=== PATIENT | female | born 1980 | race Two or more races ===

== ENCOUNTER 2016-11-21 10:16 | Outpatient (CLI) | payer MEDICAID ==
--- NOTE | 2016-11-22 22:50 | L&D Discharge Summary ---
OB Discharge Summary Datetime Report Generated by CPN: 11/22/2016 22:45 DISCHARGE DIAGNOSIS Gestation: 34.1
--- NOTE | 2016-11-22 22:50 | L&D General Admission ---
General Admit Datetime Report Generated by CPN: 11/22/2016 22:45 INFORMATION Patient Age: 36 (11/21/2016 10:16:QS system process) EDC: 01/01/2017 00:00 (11/21/2016 10:21:Monie Bellavance, RNC) CARE Height (in): 66 (11/21/2016 10:30:QS system process) ALLERGIES Medication Allergies: No Known Allergies (11/21/2016) (11/21/2016 10:29:QS system process) DEMOGRAPHICS Address: [address] [place] [id number] (11/21/2016 10:16:QS system process) Zipcode: [id number] (11/21/2016 10:16:QS system process) Home (11/21/2016 10:16:QS system process) SSN: [id number] (11/21/2016 10:16:QS system process) Next of Kin Name: CHELITA GOLDBERG (11/21/2016 10:16:QS system process) Next of Kin (11/21/2016 10:16:QS system process) Next of Kin Relationship: OR (11/21/2016 10:16:QS system process) Date of : 1980 (11/21/2016 10:16:QS system process) Marital Status: Legally (11/21/2016 10:16:QS system process) Sex: Female (11/21/2016 10:16:QS system process) Race: Other (11/21/2016 10:16:QS system process) Ethnicity: Non- or (11/21/2016 10:16:QS system process) Druze: Methodist (11/21/2016 10:16:QS system process)
--- NOTE | 2016-11-23 04:49 | L&D General Admission ---
General Admit Datetime Report Generated by CPN: 11/23/2016 04:46 INFORMATION Patient Age: 36 (11/21/2016 10:16:QS system process) EDC: 01/01/2017 00:00 (11/21/2016 10:21:Monie Bellavance, RNC) CARE Height (in): 66 (11/21/2016 10:30:QS system process) ALLERGIES Medication Allergies: No Known Allergies (11/21/2016) (11/21/2016 10:29:QS system process) DEMOGRAPHICS Address: [address] [place] [id number] (11/21/2016 10:16:QS system process) Zipcode: [address] (11/21/2016 10:16:QS system process) Home (11/21/2016 10:16:QS system process) SSN: [id number] (11/21/2016 10:16:QS system process) Next of Kin Name: CHELITA GOLDBERG (11/21/2016 10:16:QS system process) Next of Kin (11/21/2016 10:16:QS system process) Next of Kin Relationship: OR (11/21/2016 10:16:QS system process) Date of : 1980 (11/21/2016 10:16:QS system process) Marital Status: Legally (11/21/2016 10:16:QS system process) Sex: Female (11/21/2016 10:16:QS system process) Race: Other (11/21/2016 10:16:QS system process) Ethnicity: Non- or (11/21/2016 10:16:QS system process) Restorationism: Christianity (11/21/2016 10:16:QS system process)
--- NOTE | 2016-11-23 04:49 | L&D Admission Assessment ---
LD ADM ASMT Datetime Report Generated by CPN: 11/23/2016 04:46 WEIGHT Weight (lb): 176 (11/21/2016 10:30:QS system process) Weight (kg): 80.0 (11/21/2016 10:30:QS system process)
--- NOTE | 2016-11-23 04:49 | L&D Discharge Summary ---
OB Discharge Summary Datetime Report Generated by CPN: 11/23/2016 04:46 DISCHARGE DIAGNOSIS Gestation: 34.1
--- NOTE | 2016-11-23 10:50 | L&D Discharge Summary ---
OB Discharge Summary Datetime Report Generated by CPN: 11/23/2016 10:45 DISCHARGE DIAGNOSIS Gestation: 34.1
--- NOTE | 2016-11-23 10:50 | L&D General Admission ---
General Admit Datetime Report Generated by CPN: 11/23/2016 10:45 INFORMATION Patient Age: 36 (11/21/2016 10:16:QS system process) EDC: 01/01/2017 00:00 (11/21/2016 10:21:Monie Bellavance, RNC) CARE Height (in): 66 (11/21/2016 10:30:QS system process) ALLERGIES Medication Allergies: No Known Allergies (11/21/2016) (11/21/2016 10:29:QS system process) DEMOGRAPHICS Address: [address] [place] [id number] (11/21/2016 10:16:QS system process) Zipcode: [address] (11/21/2016 10:16:QS system process) Home (11/21/2016 10:16:QS system process) SSN: [id number] (11/21/2016 10:16:QS system process) Next of Kin Name: CHELITA GOLDBERG (11/21/2016 10:16:QS system process) Next of Kin (11/21/2016 10:16:QS system process) Next of Kin Relationship: OR (11/21/2016 10:16:QS system process) Date of : 1980 (11/21/2016 10:16:QS system process) Marital Status: Legally (11/21/2016 10:16:QS system process) Sex: Female (11/21/2016 10:16:QS system process) Race: Other (11/21/2016 10:16:QS system process) Ethnicity: Non- or (11/21/2016 10:16:QS system process) Samaritan: Amish (11/21/2016 10:16:QS system process)
== END 2016-11-21 10:55 | disposition home or self-care (01) ==
LOC: LC 10:16
PROVIDERS: ATTEND Specialist
PROC: 4A1HXCZ Monitoring of Products of Conception, Cardiac Rate, External Approach (ICD-10-PCS; principal; 2016-11-21)
DX: O09.523 Supervision of elderly multigravida, third trimester (principal); Z3A.34 34 weeks gestation of pregnancy
CPT/HCPCS: 59025

== ENCOUNTER 2017-01-05 23:22 | Outpatient (CLI) | payer MEDICAID ==
[2017-01-06 00:24] LABS: APPEARANCE,URINE CLEAR; BILIRUBIN,URINE NEGATIVE (NEGATIVE); GLUCOSE, URINE NEGATIVE (NEGATIVE); KETONES,URINE NEGATIVE (NEGATIVE); LEUKOCYTE ESTERASE,URINE TRACE (NEGATIVE); NITRITE,URINE NEGATIVE (NEGATIVE); PROTEIN,URINE NEGATIVE (NEGATIVE); URINE SPECIFIC GRAVITY 1.003; UROBILINOGEN,URINE NEGATIVE mg/dL (<2.0)
[2017-01-06 00:39] LABS: URINE BARBITURATES SCREEN NEGATIVE; URINE METHADONE SCREEN NEGATIVE; URINE OPIATES LOW NEGATIVE; URINE PHENCYCLIDINE SCREEN NEGATIVE
== END 2017-01-06 02:23 | disposition home or self-care (01) ==
LOC: LC 23:22
PROVIDERS: ATTEND Obstetrics & Gynecology
PROC: 4A1HXCZ Monitoring of Products of Conception, Cardiac Rate, External Approach (ICD-10-PCS; principal; 2017-01-05)
DX: O47.1 False labor at or after 37 completed weeks of gestation (principal); O09.523 Supervision of elderly multigravida, third trimester; Z3A.40 40 weeks gestation of pregnancy
CPT/HCPCS: 59025; 80307; 81005

== ENCOUNTER 2017-01-10 07:11 | Inpatient (IN) | payer MEDICAID ==
--- NOTE | 2017-01-10 07:20 | Non Stress Test Report ---
Non Stress Test Datetime Report Generated by CPN: 01/10/2017 07:20 DEMOGRAPHIC EGA NST: 40.4 INDICATION Indication for Study: Ordered by Provider MONITORING Monitor Explained: Monitor Explained; Test Explained; Patient Verbalized Understanding Time on Monitor: 01/05/2017 23:40 Time off Monitor: 01/06/2017 02:07 NST Duration: 147 NST INTERVENTIONS NST Interventions: PO Hydration Physician Notified NST: Dr Bueno BABY A: [id number] Movement : Present Contraction Frequency : irregular FHR Baseline : 140 Accelerations : 15X15 Decelerations : None Variability : Moderate 6-25bpm NST Review: Meets Criteria for Reactive NST NST Review and Verified By : JEWEL KaufmanT Results: Reactive NST REPORT Report Trigger: Send Report
[2017-01-10] MEDS ORDERED: MISOPROSTOL 0.2 MG TABLET ONE (08:02)
[2017-01-10] MEDS ORDERED: RINGERS SOLUTION,LACTATED 1,000 ML IV PRN (08:03)
[2017-01-10] MEDS ORDERED: OXYTOCIN/NORMAL SALINE 0 UNIT/0 ML RTUINJ ONE ×2 (08:03)
[2017-01-10] MEDS ORDERED: RINGERS SOLUTION,LACTATED 300 ML IV ONE (08:03)
[2017-01-10] MEDS ORDERED: LIDOCAINE 1% INJ-PF (10 MG/ML) 30 ML SDV ONE (08:03)
[2017-01-10] MEDS ORDERED: OXYTOCIN/NORMAL SALINE 1,000 ML IV PRN ×2 (08:03→12:23)
[2017-01-10] MEDS ORDERED: BUPIVACAINE HCL 0.25 % INJ/PF (2.5 MG/1 ML) 30 ML VIAL ONE (08:05)
[2017-01-10] MEDS ORDERED: EPHEDRINE SULFATE INJ 50 MG/1 ML AMPULE ONE (08:05)
[2017-01-10] MEDS ORDERED: FENTANYL/BUPIVACAINE/NS/PF 200 MCG/100 ML RTUINJ EPI ONE (08:05)
[2017-01-10] MEDS ORDERED: OXYTOCIN/NORMAL SALINE 20 UNIT/1,000 ML RTUINJ ONE (08:08)
[2017-01-10 08:26] LABS: APPEARANCE,URINE CLOUDY; BILIRUBIN,URINE NEGATIVE (NEGATIVE); GLUCOSE, URINE NEGATIVE (NEGATIVE); KETONES,URINE NEGATIVE (NEGATIVE); LEUKOCYTE ESTERASE,URINE LARGE (NEGATIVE); NITRITE,URINE NEGATIVE (NEGATIVE); PROTEIN,URINE 30 mg/dL (NEGATIVE); URINE SPECIFIC GRAVITY 1.019; UROBILINOGEN,URINE NEGATIVE mg/dL (<2.0)
--- NOTE | 2017-01-10 08:31 | L&D Progress Notes ---
PROGRESS NOTES Datetime Report Generated by CPN: 01/10/2017 08:31 PROGRESS NOTE Impression: Normal Progression of Labor Plan: Continue Present Management; Induction Informed Consent Obtained: Vaginal Delivery Vital Signs : Reviewed; Within Normal Limits Comment: Doing well, nervous about labor and delivery, Cat 1 strip, POC reviewed, desires epidural, Dr. Bueno on unit and aware of status FETUS A FHR - Baseline: 130 Monitoring: External US Variability: Moderate 6-25bpm Accelerations: 15X15 Decelerations: None SIGNATURE SIGNATURE: [id number];[id number] SIGNATURE: [id number] Assignment: Darrius Bueno DO Signature: with User ID: [email or web address] : with User ID: [email or web address]
[2017-01-10 08:39] LABS: ABSOLUTE EOSINOPHILS # (AUTO) 0.1 10^3/uL (0.0-0.6); ABSOLUTE LYMPHOCYTES (AUTO) 1.9 10^3/uL (0.5-4.7); ABSOLUTE MONOCYTES (AUTO) 0.8 10^3/uL (0.1-1.4); ABSOLUTE NEUT (AUTO) 7.8 10^3/uL (1.7-8.2); BASOPHILS % (AUTO) 0.2 % (0-2); EOSINOPHILS % (AUTO) 0.7 % (0-6); HEMOGLOBIN 13.5 g/dL (12.0-15.5); HGB HCT DIFFERENCE 0.5; LYMPHOCYTES % (AUTO) 17.6 % (13-45); MEAN CORPUSCULAR HEMOGLOBIN 31.6 pg (27.0-33.4); MEAN CORPUSCULAR HGB CONC 33.9 g/dL (32.0-36.0); MEAN CORPUSCULAR VOLUME 93 fl (80-97); MONOCYTES % (AUTO) 7.9 % (3-13); RED BLOOD COUNT 4.29 10^6/uL (3.72-5.28); RED CELL DISTRIBUTION WIDTH 13.8 % (11.5-14.0); SEGMENTED NEUTROPHILS % (AUTO) 73.6 % (42-78); WHITE BLOOD COUNT 10.6 10^3/uL (4.0-10.5)
[2017-01-10 08:40] LABS: URINE BARBITURATES SCREEN NEGATIVE; URINE METHADONE SCREEN NEGATIVE; URINE OPIATES LOW NEGATIVE; URINE PHENCYCLIDINE SCREEN NEGATIVE
--- NOTE | 2017-01-10 11:17 | L&D Progress Notes ---
PROGRESS NOTES Datetime Report Generated by CPN: 01/10/2017 11:17 PROGRESS NOTE Comment: Wanting epidural, c/o of severe pain, VE 8/100/vtx/0, FSE applied, Cat 1 strip, bolusing for epidural, anticipate FETUS C SIGNATURE: [id number];[id number] Assignment: Darrius Bueno DO Signature: with User ID: [email or web address] : with User ID: [email or web address]
[2017-01-10] MEDS ORDERED: MEASLES,MUMPS&RUBELLA VACC/PF 0.5 ML VIAL SUBCUT PRN (12:23)
[2017-01-10] MEDS ORDERED: DIBUCAINE 1% OINTMENT 28 GM TP PRN (12:23)
[2017-01-10] MEDS ORDERED: MAGNESIUM HYDROXIDE SUSP 30 ML UDCUP PO PRN (12:23)
[2017-01-10] MEDS ORDERED: NA PHOS,M-B/NA PHOS,DI-BA (ADULT) 133 ML ENEMA PR PRN (12:23)
[2017-01-10] MEDS ORDERED: DIPH/PERTUSS(ACELL)/TETANUS VAC/PF 0.5 ML SYR (>=10YO) IM PRN (12:23)
[2017-01-10] MEDS ORDERED: BENZOCAINE/MENTHOL AEROSOL SPRAY 56 ML TOP PRN (12:23)
[2017-01-10] MEDS ORDERED: ACETAMINOPHEN WITH CODEINE #3 TABLET PO PRN (12:23)
[2017-01-10] MEDS ORDERED: MISOPROSTOL 0.2 MG TABLET PR PRN (12:23)
[2017-01-10] MEDS ORDERED: PROMETHAZINE HCL 25 MG TABLET PO PRN (12:23)
[2017-01-10] MEDS ORDERED: GLYCERIN/WITCH HAZEL LEAF 1 EACH MED..PAD TP PRN (12:23)
[2017-01-10] MEDS ORDERED: PROMETHAZINE HCL 25 MG SUPP.RECT PR PRN (12:23)
[2017-01-10] MEDS ORDERED: PROMETHAZINE HCL INJ 25 MG/1 ML VIAL IV PRN (12:23)
[2017-01-10] MEDS ORDERED: DIPHENHYDRAMINE HCL 25 MG CAPSULE PO PRN (12:23)
[2017-01-10] MEDS ORDERED: ACETAMINOPHEN 650 MG SUPP.RECT PR PRN (12:23)
[2017-01-10] MEDS ORDERED: PSEUDOEPHEDRINE HCL 30 MG TABLET PO PRN (12:23)
[2017-01-10 12:25] LABS: ARTERIAL BLOOD O2 SATURATION 37.8 % (94-98)
[2017-01-10] MEDS: IBUPROFEN 800 MG TABLET PO SCH ×2 (14:26→21:07)
[2017-01-10] MEDS ORDERED: IBUPROFEN 800 MG TABLET ONE (14:28)
--- NOTE | 2017-01-10 15:28 | Admission Physical ---
Datetime Report Generated by CPN: 01/10/2017 15:27 CURRENT ADMISSION Hx Assessment: The History has been Reviewed and is Current Chief Complaint: Scheduled Induction of Labor Indication for Induction: Postterm Admit Plan: Admit to Unit; Initiate Labor Augmentation Protocol ALLERGIES Medication Allergies: No Medication Allergies: No Known Allergies (01/10/2017) Medication Allergies: No Known Allergies (01/05/2017) Medication Allergies: No Known Allergies (11/21/2016) Latex: No Latex Allergies Food Allergies: none Environmental Allergies: none OBSTETRICAL HISTORY EDC: 01/01/2017 00:00 : 7 Para: 4 Term: 4 : 0 SAB: 1 IAB: 1 Ectopic: 0 Livin Cesareans: 0 VBACs: 0 Multiple Births: 0 Gestational Diabetes: No Rh Sensitization: No Incompetent Cervix: No KATHRYN: No Infertility: No ART Treatment: No Uterine Anomaly: No IUGR: No Hx Previous C/S: No Macrosomia: No Hx Loss/Stillborn: No PIH: No Hx : No Placenta Previa/Abruption: No Depression/PP Depression: No PTL/PROM: No Post Hemorrhage: No Obstetrical History Comments: G1: 1995 38 weeks female 7 lbs 1 oz G2: 1996 40 weeks male 7 lbs G3: SAB 2000 G4: EAB 2007 G5: male 7 lbs 7 oz 2008 G6: male 7 lbs 2011 G7: current SEE RECORDS Alcohol: No Marijuana : No Cocaine: No Other Illicit Drugs: No MEDICAL HISTORY Diabetes: No Blood Transfusion: No Pulmonary Disease (Asthma, TB): No Breast Disease: No Hypertension: No Superintendent Stations Surgery: No Heart Disease: No Hosp/Surgery: No Autoimmune Disorder: No Anesthetic Complications: No Kidney Disease: No Abnormal Pap Smear: No Neuro/Epilepsy: No Psychiatric Disorders: No Other Medical Diseases: No Hepatitis/Liver Disease: No Significant Family History: No Varicosities/Phlebitis: No Trauma/Violence : No Thyroid Dysfunction: No INFECTIOUS HISTORY Gonorrhea: No Genital Herpes: No Chlamydia: No Tuberculosis: No Syphilis: No Hepatitis: No HIV/AIDS Exposure: No Rash or Viral Illness: No HPV: No PHYSICAL EXAM General: Normal HEENT: Normal Neurologic: Normal Thyroid: Normal Heart: Normal Lungs: Normal Breast: Deferred Back: Normal Abdomen: Normal Genitourinary Exam: Normal Extremities: Normal DTRs: Normal Pelvic Type: Adequate FETUS A EGA: 41.2 Monitoring: External US FHR- Baseline: 130 Admit Comment: Admit to L_D for IOL, for post dates, Cat 1 strip Anticipiate PLANS FOR LABOR AND DELIVERY Labor and Delivery: None Pain Management: Epidural Feeding Preference: Both Benefit of Breast Feed Discussed: Yes Circumcision: Yes INFORMED CONSENT Informed Consent Obtained: Vaginal Delivery Assignment: Darrius Bueno DO Signature: with User ID: [email or web address] : with User ID: [email or web address]
[2017-01-10] MEDS: FERROUS SULFATE 325 MG TABLET PO SCH (18:29)
[2017-01-10] MEDS: DOCUSATE SODIUM 100 MG CAPSULE PO SCH (18:29)
[2017-01-10] MEDS: ACETAMINOPHEN WITH CODEINE #3 TABLET PO PRN (18:34)
[2017-01-10] MEDS: FAMOTIDINE 20 MG TABLET PO SCH (21:07)
[2017-01-11] MEDS: ACETAMINOPHEN WITH CODEINE #3 TABLET PO PRN ×2 (00:55→08:37)
[2017-01-11] MEDS: IBUPROFEN 800 MG TABLET PO SCH ×3 (05:16→21:17)
[2017-01-11 07:06] LABS: HEMATOCRIT 37.5 % (36.0-47.0); HEMOGLOBIN 12.7 g/dL (12.0-15.5); HGB HCT DIFFERENCE 0.6; MEAN CORPUSCULAR HEMOGLOBIN 32.1 pg (27.0-33.4); MEAN CORPUSCULAR HGB CONC 33.9 g/dL (32.0-36.0); MEAN CORPUSCULAR VOLUME 95 fl (80-97); RED BLOOD COUNT 3.96 10^6/uL (3.72-5.28); RED CELL DISTRIBUTION WIDTH 13.8 % (11.5-14.0); WHITE BLOOD COUNT 10.3 10^3/uL (4.0-10.5)
[2017-01-11] MEDS: FERROUS SULFATE 325 MG TABLET PO SCH ×2 (09:28→17:56)
[2017-01-11] MEDS: FAMOTIDINE 20 MG TABLET PO SCH ×2 (09:28→21:18)
[2017-01-11] MEDS: DOCUSATE SODIUM 100 MG CAPSULE PO SCH ×2 (09:28→17:56)
[2017-01-11] MEDS: SENNOSIDES/DOCUSATE 8.6-50 MG 1 EACH TABLET PO SCH (09:29)
[2017-01-11] MEDS: PRENATAL VITAMIN W-O CA NO5/FE FUMARATE/FA CAPSULE PO SCH (09:29)
--- NOTE | 2017-01-11 12:35 | PDOC PROGRESS REPORT ---
Subjective-OB Subjective: Post Delivery Day:1 36 year old s/p ppd1. Voiding, ambulating and without difficulty. Denies any needs at this time Physical Exam (OB) Vital Signs: Temp Pulse Resp BP Pulse Ox 97.8 F 80 16 111/64 98 01/11/17 08:11 01/11/17 08:11 01/11/17 08:11 01/11/17 08:11 01/11/17 08:11 Intake & Output 01/10/17 01/11/17 01/12/17 06:59 06:59 06:59 Weight 83.85 kg - General General Appearance: Appears well In distress: None - PIH/Pre-Eclampsia Headache: Absent Epigastric Pain: No - Episiotomy/Laceration Site Condition: Well Approximated - Lochia Lochia Amount: Small 10-25 ml Lochia Color: Rubra/Red - Abdomen Hernia Present: No Fundal Description: Firm Fundal Height: u/u - u/2 - Respiratory Respiratory Status: No respiratory distress - Extremities Upper extremity: Normal inspection Lower extremities: Normal inspection - Neurological Cognition: Normal Orientation: AAOx4 - Psychological Associated symptoms: Normal affect - bonding well with baby Objective-Diagnostic Laboratory: 01/11/17 06:43 01/11/17 06:43 WBC 10.3 RBC 3.96 Hgb 12.7 Hct 37.5 MCV 95 MCH 32.1 MCHC 33.9 RDW 13.8 Plt Count 202 Assessment and Plan(PN) - Assessment and Plan (1) Vaginal delivery Is this a current diagnosis for this admission?: YesPlan: continue stay - Time Spent with Patient Time with patient: 15-25 minutes Medications reviewed and adjusted accordingly: Yes - Disposition Anticipated Discharge: Home Within: within 24 hours
[2017-01-12] MEDS: IBUPROFEN 800 MG TABLET PO SCH ×2 (05:05→14:24)
[2017-01-12 08:31] VITALS: BP 133/73
[2017-01-12] MEDS: SENNOSIDES/DOCUSATE 8.6-50 MG 1 EACH TABLET PO SCH (09:39)
[2017-01-12] MEDS: DOCUSATE SODIUM 100 MG CAPSULE PO SCH (09:39)
[2017-01-12] MEDS: FERROUS SULFATE 325 MG TABLET PO SCH (09:39)
[2017-01-12] MEDS: PRENATAL VITAMIN W-O CA NO5/FE FUMARATE/FA CAPSULE PO SCH (09:39)
[2017-01-12] MEDS: ACETAMINOPHEN WITH CODEINE #3 TABLET PO PRN (09:40)
[2017-01-12] MEDS: FAMOTIDINE 20 MG TABLET PO SCH (09:41)
--- NOTE | 2017-01-12 10:19 | PDOC DISCHARGE SUMMARY ---
Final Diagnosis Discharge Date: 01/12/17 - Final Diagnosis (1) Acute blood loss anemia Is this a current diagnosis for this admission?: Yes (2) Vaginal delivery Is this a current diagnosis for this admission?: Yes Discharge Data - Discharge Medication Home Medications: Vit #76/Iron,Carb/FA [Prenatabs Rx Tablet] 1 tab PO DAILY 11/21/16 Acetaminophen with Codeine [Tylenol #3 Tablet] 2 each PO Q4HP PRN #14 tablet 09/29 Docusate Sodium [Colace 100 mg Capsule] 100 mg PO BID #60 capsule 01/12/17 Ferrous Sulfate [Feosol 325 mg Tablet] 325 mg PO BID #60 tablet 01/12/17 Ibuprofen [Motrin 800 mg Tablet] 800 mg PO Q8 #60 tablet 01/12/17 Gestational Age: 41 Reason(s) for Admission: Induction of Labor Procedures: NST Intrapartum Procedure(s): Spontaneous Vaginal Delivery Complication(s): Laceration-Perineal Laceration-Degree: 1st - [place] Data Baby 1 Male Home with Mother: Yes Complications: No - Diagnosis Test Laboratory: Temp Pulse Resp BP Pulse Ox 98.3 F 103 H 16 133/73 H 98 01/12/17 08:13 01/12/17 08:13 01/12/17 08:13 01/12/17 08:13 01/12/17 08:13 01/10/17 01/10/17 01/11/17 07:30 08:29 06:43 RBC 4.29 3.96 Hgb 13.5 12.7 Hct 40.0 37.5 Urine Opiates Screen NEGATIVE - Discharge information/Instructions Discharge Activity: Activity As Tolerated, Pelvic Rest, No tub bath Discharge Diet: Regular Disposition: HOME, SELF-CARE Follow up with: [facility] in: 4, Weeks
--- NOTE | 2017-01-19 18:37 | Delivery Summary ---
Del Sum A-C Datetime Report Generated by [facility]: 01/19/2017 18:37 DELIVERY PERSONNEL: [id number];[id number];[id number] DELIVERY PERSONNEL: [id number];[id number] DELIVERY PERSONNEL: [id number];[id number] DELIVERY PERSONNEL: [phone] Delivery Doctor:: Bina Chowdary CNM Nurse Supervisor [employer] Certified:: Bina Chowdary CNM Labor and Delivery Nurse:: Chelsie Salazar RNmotor carrier inspector Nurse:: YADIRA García Watch Engine Operator/REST ROOM MATRON: Kelsie Diaz CNA II Watch Engine Operator/REST ROOM MATRON: kelsie Johnson CNA Additional Personnel: : Shelby Thurman RN MATERNAL INFORMATION Delivery Anesthesia: Epidural Medications After Delivery: Pitocin 10 Units IM; Cytotec 600mcg Per Rectum/Vagina Meds After Delivery Comment: Pitocin 20 units in 1000 ml nss open for bolus Estimated Blood Loss (ml): 300 Maternal Complications: None Provider Comments: viable male from OA to FAUSTINO, Gia for poor maternal effort, with delivery of infant, placed on mothers abdomen, cord clamped and cut after 2 1/2 minutes, cord blood and cord gases to lab, spont delivery of grossly nl intact placenta, 3 vc, ebl = 300cc, cytotec 600mcg via rectum Baby and mom remains in recovery in stable condition LABOR SUMMARY EDC: 01/01/2017 00:00 No. Babies in Womb: 1 Attempted: No Labor Anesthesia: Epidural LABOR INFORMATION Reason for Induction: Post Dates Onset of Labor: 01/10/2017 11:11 Complete Dilatation: 01/10/2017 11:55 Oxytocin: Induction Group B Beta Strep: negative Antibiotics # of Doses: 0 Antibiotics Time of Last Dose: n/a Name of Antibiotic Given: n/a Steroids Given: None Reason Steroids Not Administered: Not Applicable MEMBRANES Membranes Rupture Method: Artificial Rupture of Membranes: 01/10/2017 11:11 Amniotic Fluid Color: Clear Amniotic Fluid Amount: Scant Amniotic Fluid Odor: Normal VAGINAL DELIVERY Episiotomy: None Laceration Extension: First Degree Laceration Type: Perineal Other Laceration: 2.0 chromic Laceration Repair: Yes Laceration Repair Note: repaired with 2-3 chromic Sponge Count Correct: N/A Sharps Count Correct: Yes CSECTION DELIVERY Primary Indication: N/A Secondary Indication: N/A CSection Incidence: N/A Labor: N/A Elective: N/A CSection Incision: N/A BABY A INFORMATION Delivery Date/Time: 01/10/2017 12:04 Method of Delivery: Vaginal Born in Route : No : N/A Forceps: N/A Vacuum Extraction: N/A Shoulder Dystocia : No Presentation: Cephalic Cephalic Presentation: Vertex Vertex Position: Left Occipital Anterior Breech Presentation: N/A Placenta Delivery Time : 01/10/2017 12:10 Placenta Method of Delivery: Spontaneous Placenta Status: Delivered Heart Rate 1 min: >100 bpm Resp Effort 1 min: Good Cry Reflex Irritability 1 min: Cough or Sneeze or Pulls Away Muscle Tone 1 min: Active Motion Color 1 min: Blue/Pale Resuscitation Effort 1 min: Tactile Stimulation Heart Rate 5 min: >100 bpm Resp Effort 5 min: Good Cry Reflex Irritability 5 min: Cough or Sneeze or Pulls Away Muscle Tone 5 min: Active Motion Color 5 min: Body [place], Extremities Blue Resuscitation Effort 10 min: N/A Gestational Age at Delivery: 41.2 Outcome : Liveborn Infant Condition : Stable Infant Sex: Male Verification Date/Time: 01/10/2017 12:33 ID Band Number: [id number] Mother's Name Verified: Yes RN Verifying Infant: Nadia Ortiz RNC Additional Verifying Personnel: Milly Pereira RNC Birthweight (gm): 3830 Infant Length (in): 20.25 No. Cord Vessels: 3 Nuchal Cord : N/A Cord Blood Taken: Yes-For Storage (Mom's Blood type +) Suction: None Infant Complications: Other Infant Complications- Other: terminal meconium Physical Findings at Delivery: Puncture Wound from Scalp Electrode Infant Respirations: Appears Normal Skin to Skin: Yes Skin to Skin Time (min): 60 Pediatric Cardiologist/ALS Called : No Care By: Taryn Szymanski RN Transferred To: Remains with Mother BABY B INFORMATION : N/A
== END 2017-01-12 15:45 | disposition home or self-care (01) | DRG 775 ==
LOC: LR 07:11 → 2S 15:25
PROVIDERS: ADMIT Obstetrics & Gynecology; ATTEND Obstetrics & Gynecology
PROC: 10E0XZZ Delivery of Products of Conception, External Approach (ICD-10-PCS; principal; 2017-01-10)
PROC: 0HQ9XZZ Repair Perineum Skin, External Approach (ICD-10-PCS; 2017-01-10)
PROC: 3E033VJ Introduction of Other Hormone into Peripheral Vein, Percutaneous Approach (ICD-10-PCS; 2017-01-10)
PROC: 10907ZC Drainage of Amniotic Fluid, Therapeutic from Products of Conception, Via Natural or Artificial Opening (ICD-10-PCS; 2017-01-10)
PROC: 4A1H7CZ Monitoring of Products of Conception, Cardiac Rate, Via Natural or Artificial Opening (ICD-10-PCS; 2017-01-10)
PROC: 10H073Z Insertion of Monitoring Electrode into Products of Conception, Via Natural or Artificial Opening (ICD-10-PCS; 2017-01-10)
DX: O48.0 Post-term pregnancy (principal); D62 Acute posthemorrhagic anemia; O99.02 Anemia complicating childbirth; O70.0 First degree perineal laceration during delivery; Z3A.41 41 weeks gestation of pregnancy; Z37.0 Single live birth
CPT/HCPCS: 36415; 80307; 81005; 82803; 85025; 85027; 86592; 86850; 86900; 86901; 88307; 94760; J2590; J3490

== ENCOUNTER 2017-04-27 05:22 | Day surgery (SDC) | payer MEDICAID ==
[2017-04-23 10:05] LABS: APPEARANCE,URINE CLEAR; BILIRUBIN,URINE NEGATIVE (NEGATIVE); GLUCOSE, URINE NEGATIVE (NEGATIVE); KETONES,URINE NEGATIVE (NEGATIVE); LEUKOCYTE ESTERASE,URINE NEGATIVE (NEGATIVE); NITRITE,URINE NEGATIVE (NEGATIVE); PROTEIN,URINE NEGATIVE (NEGATIVE); URINE SPECIFIC GRAVITY 1.003; UROBILINOGEN,URINE NEGATIVE mg/dL (<2.0)
[2017-04-23 10:07] LABS: HEMATOCRIT 42.4 % (36.0-47.0); HEMOGLOBIN 14.4 g/dL (12.0-15.5); HGB HCT DIFFERENCE 0.8; MEAN CORPUSCULAR HEMOGLOBIN 31.5 pg (27.0-33.4); MEAN CORPUSCULAR HGB CONC 33.9 g/dL (32.0-36.0); MEAN CORPUSCULAR VOLUME 93 fl (80-97); RED BLOOD COUNT 4.56 10^6/uL (3.72-5.28); RED CELL DISTRIBUTION WIDTH 12.8 % (11.5-14.0); WHITE BLOOD COUNT 7.8 10^3/uL (4.0-10.5)
[~2017-04-27 05:22] MED LIST: LACTATED RINGERS 1000 ML IV PRN; LIDOCAINE 0.5% INJ-PF (5 MG/ML) 50 ML SDV SUBCUT PRN
[2017-04-27] MEDS ORDERED: ALBUTEROL SULFATE 0.083% NEB 2.5 MG/3 ML AMPUL NEB ONE (05:52)
[2017-04-27] MEDS ORDERED: LIDOCAINE 2% INJ-PF (20 MG/ML) 10 ML AMPUL ONE (06:45)
[2017-04-27] MEDS ORDERED: FENTANYL CITRATE INJ/PF 100 MCG/2 ML AMPUL ONE (06:45)
[2017-04-27] MEDS ORDERED: MIDAZOLAM 2 MG/2 ML INJ ONE (06:45)
[2017-04-27] MEDS ORDERED: PROPOFOL INJ 200 MG/20 ML VIAL IV ONE (06:46)
[2017-04-27] MEDS ORDERED: ACETAMINOPHEN 100 ML IV ONE (06:46)
[2017-04-27] MEDS ORDERED: PROMETHAZINE HCL INJ 25 MG/1 ML VIAL IV PRN ×2 (07:45)
[2017-04-27] MEDS ORDERED: DIPHENHYDRAMINE HCL 50 MG/ML VIAL IV PRN (07:45)
[2017-04-27] MEDS ORDERED: MEPERIDINE HCL/PF INJ 25 MG/1 ML DISP.SYRIN IV PRN (07:45)
[2017-04-27] MEDS ORDERED: MORPHINE SULFATE 10 MG/ML INJ IV PRN (07:45)
[2017-04-27] MEDS ORDERED: OXYCODONE-ACETAMINOPHEN 5-325 MG TABLET PO PRN ×4 (07:45→08:22)
[2017-04-27] MEDS ORDERED: FENTANYL CITRATE INJ/PF 100 MCG/2 ML AMPUL IV PRN ×3 (07:45)
[2017-04-27] MEDS ORDERED: ONDANSETRON HCL INJ/PF 4 MG/2 ML SDV IV PRN (07:45)
[2017-04-27] MEDS ORDERED: IBUPROFEN 800 MG TABLET PO PRN (08:21)
[2017-04-27] MEDS ORDERED: MORPHINE SULFATE 10 MG/ML INJ IM PRN (08:21)
[2017-04-27] MEDS ORDERED: RINGERS SOLUTION,LACTATED 1,000 ML IV PRN (08:22)
[2017-04-27] MEDS ORDERED: DIPHENHYDRAMINE HCL 50 MG/ML VIAL ONE (08:58)
[2017-04-27 10:10] VITALS: BP 108/70
--- NOTE | 2017-06-11 20:52 | OPERATIVE REPORT E ---
Operative Report NAME: SAMANTHA AWAN : 1980 AGE: 37Y DATE OF SURGERY: 04/27/2017 ROOM: PREOPERATIVE DIAGNOSIS: Patient desiring permanent sterilization. POSTOPERATIVE DIAGNOSIS: Patient desiring permanent sterilization. OPERATION: Essure coil placement. SURGEON: Darrius Bueno D.O. CAPTAIN FISHING VESSEL: None. ANESTHESIA: General endotracheal anesthesia. COMPLICATIONS: Bleeder on cervix from single-tooth tenaculum; hemostasis gained through Bovie cautery. PATHOLOGY: None. ESTIMATED BLOOD LOSS: 50 mL. FINDINGS: 1. Normal uterine cavity on hysteroscopic examination. 2. One coil visualized on each tubal ostial post placement of coil. PROCEDURE: The patient was taken to the operating room where she was placed in a dorsal supine position upon the operating room table. She then has her general endotracheal anesthesia administered. Once this was done, she was placed in the dorsal lithotomy position with Kj stirrups. She was then prepped and draped in a normal sterile fashion. An open-sided speculum was then placed inside the patient's vagina. Cervix is easy gripped and grasped on the anterior lip of the single-tooth tenaculum. Uterus was then sounded to 8 cm. The cervix was then dilated to a 28 [place] using the Amilcar dilator. Using a 30-degree hysteroscope that is found to be operating properly, a diagnostic hysteroscopic examination is performed which reveals a normal endometrial cavity with both tubal ostia seen. Following this, the Essure coil placement is placed in each fallopian tube without difficulty, and one coil was visualized at the open end of each tubal ostia after each placement. Following this, the hysteroscope was then removed from the patient's body. Following this, the single-tooth tenaculum is removed off of the cervix. It is noted there is a bleeder from where the single-tooth tenaculum had grasped the cervix. Hemostasis was attempted using silver nitrate, but this was not successful, so a Bovie cautery was then used to gain hemostasis. Following this, all instruments were removed from the patient's vagina, and this procedure was terminated. All sponge, lap, and needle counts were correct x2. The patient tolerated the procedure well. The patient was taken to recovery room in stable condition. DICTATING PHYSICIAN: Darrius Bueno DO [id number] PHY#: [id number] ID: [id number] JOB#: [id number] ACCT: [id number] cc:Darrius Bueno D.O. >
== END 2017-04-27 10:10 | disposition home or self-care (01) ==
LOC: OROUT 05:22
PROVIDERS: ATTEND Obstetrics & Gynecology
PROC: 0UL78DZ Occlusion of Bilateral Fallopian Tubes with Intraluminal Device, Via Natural or Artificial Opening Endoscopic (ICD-10-PCS; principal; 2017-04-27 07:30)
DX: Z30.2 Encounter for sterilization (principal); F17.210 Nicotine dependence, cigarettes, uncomplicated
CPT/HCPCS: 36415; 85027; 81025; 81001; 58565; J2250; J1200; J3010; J2704; J3490; J0131; 952